=== PATIENT | male | born 1965 | race Caucasian/White ===

== ENCOUNTER 2021-01-26 09:44 | Outpatient (REF) | payer MEDICARE, SELFPAY | END 2021-01-26 09:45 | disposition home or self-care (01) | LOC: HO.HMGCLDS 09:44 | PROVIDERS: Visit Provider Internal Medicine | DX: Z20.822 Contact with and (suspected) exposure to COVID-19 (principal) | CPT/HCPCS: 36415; 87635; C9803; U0003; U0005 ==